=== PATIENT | male | born 1945 | race Caucasian/White ===

== ENCOUNTER 2020-10-16 15:35 | Outpatient (REF) | payer MEDICARE, OTHER, SELFPAY | END 2020-10-16 15:36 | disposition home or self-care (01) | LOC: HO.LAB 15:35 | PROVIDERS: Visit Provider Internal Medicine | DX: Z20.828 Contact with and (suspected) exposure to other viral communicable diseases (principal) | CPT/HCPCS: C9803; U0003 ==

== ENCOUNTER 2020-12-17 20:19 | Emergency (ER) | payer MEDICARE, OTHER, SELFPAY ==
--- NOTE | ~2020-12-17 | XR_ITS ---
EXAMINATION: XR CHEST CLINICAL INFORMATION: Chest pain COMPARISON: 10/16/2016 TECHNIQUE: 2 views of the chest were obtained. FINDINGS: No significant abnormality is noted involving the heart mediastinum, bony thorax or soft tissues. There is an opacity seen in the infrahilar region on the right consistent with a small area of infiltrate. Alternatively, this could represent some tortuosity of the fissure. No pleural effusions are seen. No pneumothorax is present. XR/XR chest 2V IMPRESSION: Small area of infiltrate right infrahilar region. In the correct clinical setting this could be pneumonia. A follow-up study is recommended after treatment.
[2020-12-17 20:30] VITALS: BP 139/73; PULSE 91; RESP 18; TEMP 36.8; O2SAT 94; BMI 26.5
--- NOTE | 2020-12-17 20:35 | ECG_ITS ---
Test Reason : HEARTBURN Blood Pressure : / mmHG Vent. Rate : 091 BPM Atrial Rate : 091 BPM P-R Int : 142 ms QRS Dur : 086 ms QT Int : 352 ms P-R-T Axes : 052 042 028 degrees QTc Int : 432 ms Normal sinus rhythm Nonspecific ST abnormality Abnormal ECG When compared with ECG of 16-OCT-2016 20:49, Nonspecific ST and T wave abnormality more prominent Referred By: Generic ED Physician Electronically Signed By:JESU FRANK
[2020-12-17 20:46] LABS: MANUAL DIFF FLAG NO
[2020-12-17 20:47] LABS: Basophils Percent Auto 0.3 % (0-2); Eosinophils Absolute Auto 0.3 X10*3/uL (0.0-0.4); Eosinophils Percent Auto 2.2 % (0-4); Hematocrit 35.5 % (42-52); Hemoglobin 11.9 g/dl (14.0-18.0); Imm Gran Abs Auto 0.22 X10*3/uL (0.00-0.03); Imm Gran Pct Auto 1.8 % (0.0-0.4); Lymphocytes Absolute Auto 1.8 X10*3/uL (1.2-4.9); Lymphocytes Percent Auto 14.3 % (20-40); Mean Corpuscular HGB Conc 33.5 g/dl (31.0-36.0); Mean Corpuscular Hemoglobin 30.8 pg (27.0-33.0); Mean Platelet Volume 8.5 fL (9.4-12.4); Monocytes Absolute Auto 0.7 X10*3/uL (0.1-1.2); Monocytes Percent Auto 5.7 % (2-11); Neutrophils Absolute Auto 9.3 X10*3/uL (2.0-8.3); Neutrophils Percent Auto 75.7 % (45-73); Platelet Count 387 X10*3/uL (160-400); Red Blood Count 3.86 X10*6/uL (4.60-5.80); Red Cell Distribution Width 12.9 % (11.0-16.0); White Blood Count 12.3 X10*3/uL (4.8-10.8)
[2020-12-17 21:07] LABS: Anion Gap 14 (12-20); Blood Urea Nitrogen 29 mg/dL (9-16); Carbon Dioxide 27 mmol/L (22-29); Chloride 100 mmol/L (96-108); Creatinine Clr Calc Pharmacy 65.8; Estimated Glomerular Filt Rate > 60; Glucose Random 175 mg/dL (60-115); Potassium 4.1 mmol/L (3.3-5.1); Sodium 137 mmol/L (135-145)
[2020-12-17 21:11] LABS: Troponin-I High Sensitivity < 3.5 ng/L (<3.5-35.0)
[2020-12-18] VITALS: BP 122/67; PULSE 63; RESP 16; O2SAT 96
--- NOTE | 2020-12-18 00:54 | ED.CHESTPAIN ---
HPI - Chest Pain General Chief Complaint: Chest Pain Stated Complaint: Chest pain Time Seen by Provider: 12/18/20 00:54 Source: patient Mode of arrival: ambulatory History of Present Illness HPI narrative: This is a 75-year-old male with significant past medical history for CAD, pancreatic mass status post pancreatectomy in mid November who presents for onset burning type chest pain, nonradiating and not associated with shortness of breath, nausea, dizziness, diaphoresis this started approximately 2:00 p.m. this afternoon. He took some Tums with some mild relief and then pain recurred approximately 5:00 p.m. at that time he spoke with his surgeon who recommended Mylanta and despite taking this patient states that he has continued to have the indigestion symptoms. Patient's denies any nausea or vomiting, has been having regular bowel movements and states that he continues to pass flatus. He denies any fevers or chills and his last COVID-19 testing was and was negative at that time. He has undergone his 1st COVID-19 vaccine on 11/18/2020 and is scheduled for his 2nd vaccine on 12/23. Related Data Previous Rx's Medication Instructions Recorded doxycycline hyclate 100 mg PO BID 7 Days #14 cap 12/18/20 Allergies Allergy/AdvReac Type Severity Reaction Status Date / Time meperidine [From Demerol] Allergy Unknown RASH Verified 12/17/20 20:30 Review of Systems Review of Systems: Pertinent positives and negatives as stated in HPI 10 point review of systems is otherwise negative. [facility] Past Medical History Source: nursing notes reviewed Medical History CAD (coronary artery disease) HTN (hypertension) Pancreatic abnormality Surgical History Hx of heart artery stent Social History Social History Alcohol intake: never Smoking Status: Former smoker Smoked in Last 30 Days: No Use of substances other than those prescribed or required for medical reasons: No Advance Directives: No Physical Exam Vital Signs: Vital Signs: Last Vital Signs Temp 98.2 F 12/17/20 20:30 Pulse 63 12/18/20 00:00 Resp 16 12/18/20 00:00 BP 122/67 12/18/20 00:00 Pulse Ox 96 12/18/20 00:00 Body Mass Index 26.5 VITAL SIGNS: Reviewed. GENERAL: Well developed, well nourished, in no acute distress. HEAD: Normocephalic/atraumatic, EYES: PERRLA, EOMI EARS: Ext canals without abnormality, TMs non-bulging and non-erythematous NOSE: Nares patent bilateral OROPHARYNX: no oral lesions noted, posterior pharynx clear NECK: Supple, no adenopathy LUNGS: Normal breath sounds. No adventitious sounds or accessory muscle use. SpO2<94> CARDIOVASCULAR: Regular rate and rhythm without noted murmurs, no JVD or lower extremity edema. ABDOMEN: Soft, non-tender, non-distended with bowel sounds. Well-healing scars consistent with patient's recent surgery. SKIN: Inspection of the skin reveals no rashes NEUROLOGIC: Alert and oriented x 4. Strength and sensation to light touch were grossly intact x 4. Course Course Course Narrative: This is a 75-year-old male with history and clinical presentation suggestive possible pneumonia, gastritis/GERD, less likely secondary to cardiac ischemia. Review of all investigations to include serial troponins are negative for any acute findings other than as chest x-ray findings consistent with pneumonia that correspond to a mild leukocytosis of 12.3. Patient will receive initial antibiotics here in the emergency department and be discharged on remaining course with strong recommendations to follow up with his primary care provider. MDM - Chest Pain Lab Data Result diagrams: 12/17/20 20:41 12/17/20 20:41 Labs: Lab Results 12/17/20 12/17/20 12/17/20 Range/Units 20:41 20:41 20:41 WBC 12.3 H (4.8-10.8) X10*3/uL RBC 3.86 L (4.60-5.80) X10*6/uL Hgb 11.9 L (14.0-18.0) g/dl Hct 35.5 L (42-52) % MCV 92.0 (80-98) fL MCH 30.8 (27.0-33.0) pg MCHC 33.5 (31.0-36.0) g/dl RDW 12.9 (11.0-16.0) % Plt Count 387 (160-400) X10*3/uL MPV 8.5 L (9.4-12.4) fL Immature Gran % (Auto) 1.8 H (0.0-0.4) % Neut % (Auto) 75.7 H (45-73) % Lymph % (Auto) 14.3 L (20-40) % [place] % (Auto) 5.7 (2-11) % Eos % (Auto) 2.2 (0-4) % Baso % (Auto) 0.3 (0-2) % Lymph # (Auto) 1.8 (1.2-4.9) X10*3/uL [place] # (Auto) 0.7 (0.1-1.2) X10*3/uL Eos # (Auto) 0.3 (0.0-0.4) X10*3/uL Baso # (Auto) 0.0 (0.0-0.2) X10*3/uL Abs Immat Gran (auto) 0.22 H (0.00-0.03) X10*3/uL Absolute Neuts (auto) 9.3 H (2.0-8.3) X10*3/uL Absolute Nucleated RBC 0.000 (0.0-0.012) X10*3/uL Nucleated RBC % (auto) 0.0 (0.0-0.2) /100WBC Hold Blue Top SEE NOTE Sodium 137 (135-145) mmol/L Potassium 4.1 (3.3-5.1) mmol/L Chloride 100 (96-108) mmol/L Carbon Dioxide 27 (22-29) mmol/L Anion Gap 14 (12-20) BUN 29 H (9-16) mg/dL Creatinine 0.97 (0.5-1.4) mg/dL Estim Creat Clear Calc 65.8 Estimated GFR > 60 Random Glucose 175 H (60-115) mg/dL Calcium 9.0 (8.4-10.2) mg/dL Troponin I High Sens (<3.5-35.0) ng/L 12/17/20 12/18/20 Range/Units 20:41 01:35 WBC (4.8-10.8) X10*3/uL RBC (4.60-5.80) X10*6/uL Hgb (14.0-18.0) g/dl Hct (42-52) % MCV (80-98) fL MCH (27.0-33.0) pg MCHC (31.0-36.0) g/dl RDW (11.0-16.0) % Plt Count (160-400) X10*3/uL MPV (9.4-12.4) fL Immature Gran % (Auto) (0.0-0.4) % Neut % (Auto) (45-73) % Lymph % (Auto) (20-40) % [place] % (Auto) (2-11) % Eos % (Auto) (0-4) % Baso % (Auto) (0-2) % Lymph # (Auto) (1.2-4.9) X10*3/uL [place] # (Auto) (0.1-1.2) X10*3/uL Eos # (Auto) (0.0-0.4) X10*3/uL Baso # (Auto) (0.0-0.2) X10*3/uL Abs Immat Gran (auto) (0.00-0.03) X10*3/uL Absolute Neuts (auto) (2.0-8.3) X10*3/uL Absolute Nucleated RBC (0.0-0.012) X10*3/uL Nucleated RBC % (auto) (0.0-0.2) /100WBC Hold Blue Top Sodium (135-145) mmol/L Potassium (3.3-5.1) mmol/L Chloride (96-108) mmol/L Carbon Dioxide (22-29) mmol/L Anion Gap (12-20) BUN (9-16) mg/dL Creatinine (0.5-1.4) mg/dL Estim Creat Clear Calc Estimated GFR Random Glucose (60-115) mg/dL Calcium (8.4-10.2) mg/dL Troponin I High Sens < 3.5 4.4 (<3.5-35.0) ng/L ECG Data ECG #1: Attestation: I personally reviewed and interpreted this ECG as follows: Prior ECG tracings: available for review (10/16/2016 no acute changes on comparison) Ischemic changes: non-specific ST-T wave changes Interpretation: Normal sinus rhythm, HR-91, no evidence of acute ischemia, DE/QRS/QTC is within normal limits. Discharge Plan Discharge Clinical Impression: Pneumonia Qualifiers: Pneumonia type: due to unspecified organism Laterality: right Lung location: unspecified part of lung Qualified Code(s): J18.9 - Pneumonia, unspecified organism Patient Disposition: Home, Self-Care Instructions: Pneumonia (ED) Additional Instructions: Resume all home medications as prescribed. Complete entire course of antibiotics. Please follow-up with your primary care provider by calling 1st thing in the morning to alert them of your diagnosis pneumonia. Do not hesitate to return to the emergency department should you develop any acute worsening of your symptoms that include increased shortness of breath, fevers, chills. Prescriptions: New doxycycline hyclate 100 mg capsule 100 mg PO BID 7 Days Qty: 14 RF: 0 Referrals: Farhan Salcido MD [Primary Care Provider] - 2 days (Re-evaluation after diagnosed with pneumonia on 12/18/2020 and started on a course of doxycycline.)
[2020-12-18 01:48] VITALS: PULSE 63
[2020-12-18 02:00] VITALS: BP 130/72; PULSE 68; RESP 16; O2SAT 96
[2020-12-18 02:12] LABS: Troponin-I High Sensitivity 4.4 ng/L (<3.5-35.0)
== END 2020-12-18 03:00 | disposition home or self-care (01) ==
PROVIDERS: Emergency Provider Student in an Organized Health Care Education/Training Program; PCP Internal Medicine
DX: J18.9 Pneumonia, unspecified organism (principal); R07.9 Chest pain, unspecified; I10 Essential (primary) hypertension; Z87.891 Personal history of nicotine dependence; I25.10 Atherosclerotic heart disease of native coronary artery without angina pectoris
CPT/HCPCS: 36415; 71046; 80048; 84484; 85025; 93005; 99283; 99284

== ENCOUNTER 2021-02-01 13:06 | Outpatient (REF) | payer MEDICARE, OTHER, SELFPAY ==
--- NOTE | ~2021-02-01 | XR_ITS ---
EXAMINATION: XR CHEST CLINICAL INFORMATION: Follow-up right-sided pneumonia COMPARISON: Previous chest x-ray 12/17/2020 TECHNIQUE: 2 views of the chest were obtained. FINDINGS: The cardiac and mediastinal contours are normal. The lungs are clear without evidence of a pneumonia. There is no pleural effusion or pneumothorax. There are mild degenerative changes of the spine. XR/XR chest 2V IMPRESSION: No evidence of pneumonia.
== END 2021-02-01 13:07 | disposition home or self-care (01) ==
LOC: HO.LAB 13:06
PROVIDERS: PCP Internal Medicine; Visit Provider Internal Medicine
DX: J18.8 Other pneumonia, unspecified organism (principal)
CPT/HCPCS: 71046

== ENCOUNTER 2023-02-16 11:52 | Emergency (ER) | payer MEDICARE, OTHER, SELFPAY ==
--- NOTE | ~2023-02-16 | XR_ITS ---
EXAMINATION: XR CHEST CLINICAL INFORMATION: Chest pain COMPARISON: Previous chest x-ray most recent January 2021 TECHNIQUE: 2 views of the chest were obtained. FINDINGS: No significant abnormality is noted involving the heart, lungs, mediastinum, bony thorax or soft tissues. There are degenerative changes of the spine. XR/XR chest 2V IMPRESSION: No evidence for acute disease in the chest.
--- NOTE | 2023-02-16 11:56 | ECG_ITS ---
Test Reason : CP Blood Pressure : / mmHG Vent. Rate : 130 BPM Atrial Rate : 130 BPM P-R Int : 136 ms QRS Dur : 148 ms QT Int : 336 ms P-R-T Axes : 000 029 -31 degrees QTc Int : 494 ms Atrial flutter with 2 to 1 block Right bundle branch block Possible Inferior infarct , age undetermined Abnormal ECG When compared with ECG of 17-DEC-2020 20:26, Atrial flutter with 2 to 1 block has replaced Normal sinus rhythm Right bundle branch block is now Present Referred By: Mirlande Bertrand Electronically Signed By:ALEJA GANDARA MD
--- NOTE | 2023-02-16 12:17 | ED_ITS ---
HPI - Chest Pain General Chief Complaint: Chest Pain <MONA Bernardo - Last Filed: 02/16/23 12:23> Stated Complaint: Chest pain <MONA Bernardo - Last Filed: 02/16/23 12:23> Time Seen by Provider: 02/16/23 12:27 <MONA Bernardo - Last Filed: 02/16/23 12:23> Source: patient <Arnulfo Whitman MD - Last Filed: 02/16/23 15:07> Mode of arrival: ambulatory <Arnulfo Whitman MD - Last Filed: 02/16/23 15:07> Limitations: no limitations <Arnulfo Whitman MD - Last Filed: 02/16/23 15:07> History of Present Illness HPI narrative: In 77-year-old male with history of coronary artery disease with 3 stents on Xarelto for paroxysmal atrial fibrillation presents with chest pain. The chest pain started at rest while watching TV. Was substernal. Did not radiate. Described as tight. Symptoms are moderate. It was not worsened by exertion. Patient normally able to walk 2 miles without any complaints. Said no fevers or chills. Denies any shortness of breath, palpitations, lightheadedness, nausea, vomiting. Patient is currently pain-free. Patient reports his pain as being different from his cardiac pain in the past when it felt like heartburn. <Arnulfo Whitman MD - Last Filed: 02/16/23 15:07> Related Data Home Medications: Previous Rx's Medication Instructions Recorded doxycycline hyclate 100 mg capsule 100 mg PO BID 7 days #14 caps 12/18/20 <MONA Bernardo - Last Filed: 02/16/23 12:23> Allergies/Adverse Reactions: Allergies Allergy/AdvReac Type Severity Reaction Status Date / Time meperidine [From Demerol] Allergy Unknown RASH Verified 02/16/23 12:18 metformin Allergy Muscle Pain Verified 02/16/23 12:18 <MONA Bernardo - Last Filed: 02/16/23 12:23> [facility] Past Medical History Medical History: Medical History CAD (coronary artery disease) HTN (hypertension) Pancreatic abnormality <MONA Bernardo - Last Filed: 02/16/23 12:23> Surgical History: Surgical History Hx of heart artery stent <MONA Bernardo - Last Filed: 02/16/23 12:23> Social History Social History: Social History Alcohol intake: current Alcohol intake frequency: 0-2 drinks per day Smoked in Last 30 Days: No Use of substances other than those prescribed or required for medical reasons: No Advance Directives: Yes Advance Directives Information Provided: Yes Advance Directives on File: No <MONA Bernardo - Last Filed: 02/16/23 12:23> Physical Exam Vital Signs: Vital Signs: Last Vital Signs Temp 97.9 F 02/16/23 13:24 Pulse 116 H 02/16/23 13:24 Resp 20 02/16/23 13:24 BP 157/111 H 02/16/23 13:24 Pulse Ox 94 02/16/23 13:24 O2 Del Method Room Air 02/16/23 13:24 BMI result Body Mass Index 27.9 <MONA Bernardo - Last Filed: 02/16/23 12:23> Vital Signs: Last Vital Signs Temp 97.9 F 02/16/23 13:24 Pulse 116 H 02/16/23 13:24 Resp 20 02/16/23 13:24 BP 157/111 H 02/16/23 13:24 Pulse Ox 94 02/16/23 13:24 O2 Del Method Room Air 02/16/23 13:24 BMI result Body Mass Index 27.9 <Arnulfo Whitman MD - Last Filed: 02/16/23 15:07> GEN: Well developed, no acute distress, alert, oriented HEENT: Normocephalic, atraumatic, normal external ears, nose appears normal, no oropharyngeal edema or exudates Eyes: Normal to appearance Neck: Supple, no lymphadenopathy Respiratory: Talks in complete sentences, no respiratory distress, clear to auscultation bilaterally Cardiovascular: Regular rate and rhythm, no murmurs rubs or gallops, tachycardic Abdomen: Soft, nontender, nondistended, no guarding, no rebound Back: No CVA tenderness Extremities: No clubbing cyanosis or edema Neurologic: No focal neurologic deficits, cranial nerves 2-12 intact, strength is 5/5 bilaterally Skin: No rash <Arnulfo Whitman MD - Last Filed: 02/16/23 15:07> Course Course Course Narrative: RME - 77 y/o with history of paroxysaml atrial fibrillation on Eliquis, CAD s/p 3 stents, s/p Watchman procedure 2 weeks ago (sees [facility] at [facility]), hx pancreatic mass s/p pancreatectomy, prostate cancer with hx rectal bleeding in October due to radiation who presents to the ER for evaluation non-radiating central chest pressure and tachycardia that started at 11am today while watching the news. His watch notified him of a HR 130 bpm for 10 minutes, no palpitations, SOB, diaphoresis. Chest pressure self-resolved. HR 130s in triage. EKG sinus tachycardia, new RBBB compared to 2020. BP 170/100. Plan: EKG, labs, CXR. to go back to treatment room [facility] <MONA Bernardo - Last Filed: 02/16/23 12:23> Reevaluation(s) Reevaluation #1: remains tachycardic, giving ivf <Arnulfo Whitman MD - Last Filed: 02/16/23 15:07> Time: 13:28 <Arnulfo Whitman MD - Last Filed: 02/16/23 15:07> Reevaluation #2: Metoprolol given, no change in HR, will try Cardizem <Arnulfo Whitman MD - Last Filed: 02/16/23 15:07> Time: 14:12 <Arnulfo Whitman MD - Last Filed: 02/16/23 15:07> Reevaluation #3: HR now 57. PVCs checking 12 lead. EKG demonstrated normal sinus rhythm. I suspect the initial EKG was actually atrial flutter with rapid ventricular response with a 2-1 block. I did send this to 1 of our cardiologists for review. He agreed with this interpretation. Two cardiac enzymes are now negati ve. Patient can be discharged to follow-up with his primary domestic housekeeper. <Arnulfo Whitman MD - Last Filed: 02/16/23 15:07> Time: 15:05 <Arnulfo Whitman MD - Last Filed: 02/16/23 15:07> Medications Administered Discontinued Medications Generic Name Dose Route Start Last Admin Trade Name Freq PRN Reason Stop Dose Admin Sodium Chloride 1,000 mls @ 999 mls/hr 02/16/23 12:45 02/16/23 14:51 Ns IV 02/16/23 13:45 Infused .Q1H1M LESLEE Infusion <MONA Bernardo - Last Filed: 02/16/23 12:23> Medications Administered Discontinued Medications Generic Name Dose Route Start Last Admin Trade Name Freq PRN Reason Stop Dose Admin Sodium Chloride 1,000 mls @ 999 mls/hr 02/16/23 12:45 02/16/23 14:51 Ns IV 02/16/23 13:45 Infused .Q1H1M LESLEE Infusion <Arnulfo Whitman MD - Last Filed: 02/16/23 15:07> Medical Decision Making Medical Decision Making [facility] Narrative: 77-year-old male presents with chest pain. Patient has history coronary artery disease. On arrival, is hemodynamically stable, no acute distress, pain free. Cardiopulmonary exam revealed tachycardia but otherwise no acute abnormalities. EKG shows sinus tachycardia with a right bundle-branch block. That was not seen previously. It patient is currently pain-free. Patient will need 2 sets of cardiac enzymes, chest x-ray, re-evaluation. <Arnulfo Whitman MD - Last Filed: 02/16/23 15:07> Differential Diagnosis Differential Diagnoses: The differential diagnosis associated with the presentation includes (Acute coronary syndrome, chest pain, atypical chest pain, GERD, gastritis, dyspepsia) <Arnulfo Whitman MD - Last Filed: 02/16/23 15:07> Atrial flutter with rapid ventricular response, chest pain <Arnulfo Whitman MD - Last Filed: 02/16/23 15:07> Admission/Observation Consideration of admission/observation: Escalation of care including admission/observation considered <Arnulfo Whitman MD - Last Filed: 02/16/23 15:07> Lab Data [facility] Lab Attestation statement: I reviewed the patient's lab results. <Arnulfo Whitman MD - Last Filed: 02/16/23 15:07> Result Diagrams: 02/16/23 12:11 02/16/23 12:11 <MONA Bernardo - Last Filed: 02/16/23 12:23> Labs: Lab Results 02/16/23 02/16/23 02/16/23 Range/Units 12:11 12:11 12:11 WBC 5.9 (4.8-10.8) X10*3/uL RBC 4.98 (4.60-5.80) X10*6/uL Hgb 14.6 (14.0-18.0) g/dl Hct 44.5 (42.0-52.0) % MCV 89.4 (80.0-98.0) fL MCH 29.3 (27.0-33.0) pg MCHC 32.8 (31.0-36.0) g/dl RDW 14.6 (11.0-16.0) % Plt Count 149 L (160-400) X10*3/uL MPV 9.4 (9.4-12.4) fL Immature Gran % (Auto) 0.7 H (0.0-0.4) % Neut % (Auto) 56.4 (45-73) % Lymph % (Auto) 26.7 (20-40) % [place] % (Auto) 8.3 (2-11) % Eos % (Auto) 7.2 H (0-4) % Baso % (Auto) 0.7 (0-2) % Lymph # (Auto) 1.6 (1.2-4.9) X10*3/uL [place] # (Auto) 0.5 (0.1-1.2) X10*3/uL Eos # (Auto) 0.4 (0.0-0.4) X10*3/uL Baso # (Auto) 0.0 (0.0-0.2) X10*3/uL Abs Immat Gran (auto) 0.04 H (0.00-0.03) X10*3/uL Absolute Neuts (auto) 3.3 (2.0-8.3) x10*3/uL Absolute Nucleated RBC 0.000 (0.0-0.012) X10*3/uL Nucleated RBC % (auto) 0.0 (0.0-0.2) /100WBC Sodium 140 (135-145) mmol/L Potassium 4.7 (3.3-5.1) mmol/L Chloride 105 (96-108) mmol/L Carbon Dioxide 27 (22-29) mmol/L Anion Gap 13 (12-20) BUN 22 H (9-16) mg/dL Creatinine 0.97 (0.5-1.4) mg/dL Estim Creat Clear Calc 69.1 Estimated GFR > 60 Random Glucose 127 H (60-115) mg/dL Calcium 9.9 D (8.4-10.2) mg/dL Magnesium 2.1 (1.6-2.6) mg/dL Total Bilirubin 1.0 (0.0-1.0) mg/dL Direct Bilirubin 0.3 (0.0-0.5) mg/dL AST 22 (5-37) U/L ALT 18 (0-40) U/L Alkaline Phosphatase 83 (39-117) U/L Troponin I High Sens < 2.7 (<3.5-35.0) ng/L B-Natriuretic Peptide (<100) pg/mL Total Protein 7.0 (6.5-8.0) g/dL Albumin 4.2 (3.5-5.0) g/dL TSH 1.61 (0.32-4.0) uIU/mL 02/16/23 02/16/23 Range/Units 12:11 14:33 WBC (4.8-10.8) X10*3/uL RBC (4.60-5.80) X10*6/uL Hgb (14.0-18.0) g/dl Hct (42.0-52.0) % MCV (80.0-98.0) fL MCH (27.0-33.0) pg MCHC (31.0-36.0) g/dl RDW (11.0-16.0) % Plt Count (160-400) X10*3/uL MPV (9.4-12.4) fL Immature Gran % (Auto) (0.0-0.4) % Neut % (Auto) (45-73) % Lymph % (Auto) (20-40) % [place] % (Auto) (2-11) % Eos % (Auto) (0-4) % Baso % (Auto) (0-2) % Lymph # (Auto) (1.2-4.9) X10*3/uL [place] # (Auto) (0.1-1.2) X10*3/uL Eos # (Auto) (0.0-0.4) X10*3/uL Baso # (Auto) (0.0-0.2) X10*3/uL Abs Immat Gran (auto) (0.00-0.03) X10*3/uL Absolute Neuts (auto) (2.0-8.3) x10*3/uL Absolute Nucleated RBC (0.0-0.012) X10*3/uL Nucleated RBC % (auto) (0.0-0.2) /100WBC Sodium (135-145) mmol/L Potassium (3.3-5.1) mmol/L Chloride (96-108) mmol/L Carbon Dioxide (22-29) mmol/L Anion Gap (12-20) BUN (9-16) mg/dL Creatinine (0.5-1.4) mg/dL Estim Creat Clear Calc Estimated GFR Random Glucose (60-115) mg/dL Calcium (8.4-10.2) mg/dL Magnesium (1.6-2.6) mg/dL Total Bilirubin (0.0-1.0) mg/dL Direct Bilirubin (0.0-0.5) mg/dL AST (5-37) U/L ALT (0-40) U/L Alkaline Phosphatase (39-117) U/L Troponin I High Sens < 2.7 (<3.5-35.0) ng/L B-Natriuretic Peptide 140 H (<100) pg/mL Total Protein (6.5-8.0) g/dL Albumin (3.5-5.0) g/dL TSH (0.32-4.0) uIU/mL <MONA Bernardo - Last Filed: 02/16/23 12:23> Lab Results 02/16/23 02/16/23 02/16/23 Range/Units 12:11 12:11 12:11 WBC 5.9 (4.8-10.8) X10*3/uL RBC 4.98 (4.60-5.80) X10*6/uL Hgb 14.6 (14.0-18.0) g/dl Hct 44.5 (42.0-52.0) % MCV 89.4 (80.0-98.0) fL MCH 29.3 (27.0-33.0) pg MCHC 32.8 (31.0-36.0) g/dl RDW 14.6 (11.0-16.0) % Plt Count 149 L (160-400) X10*3/uL MPV 9.4 (9.4-12.4) fL Immature Gran % (Auto) 0.7 H (0.0-0.4) % Neut % (Auto) 56.4 (45-73) % Lymph % (Auto) 26.7 (20-40) % [place] % (Auto) 8.3 (2-11) % Eos % (Auto) 7.2 H (0-4) % Baso % (Auto) 0.7 (0-2) % Lymph # (Auto) 1.6 (1.2-4.9) X10*3/uL [place] # (Auto) 0.5 (0.1-1.2) X10*3/uL Eos # (Auto) 0.4 (0.0-0.4) X10*3/uL Baso # (Auto) 0.0 (0.0-0.2) X10*3/uL Abs Immat Gran (auto) 0.04 H (0.00-0.03) X10*3/uL Absolute Neuts (auto) 3.3 (2.0-8.3) x10*3/uL Absolute Nucleated RBC 0.000 (0.0-0.012) X10*3/uL Nucleated RBC % (auto) 0.0 (0.0-0.2) /100WBC Sodium 140 (135-145) mmol/L Potassium 4.7 (3.3-5.1) mmol/L Chloride 105 (96-108) mmol/L Carbon Dioxide 27 (22-29) mmol/L Anion Gap 13 (12-20) BUN 22 H (9-16) mg/dL Creatinine 0.97 (0.5-1.4) mg/dL Estim Creat Clear Calc 69.1 Estimated GFR > 60 Random Glucose 127 H (60-115) mg/dL Calcium 9.9 D (8.4-10.2) mg/dL Magnesium 2.1 (1.6-2.6) mg/dL Total Bilirubin 1.0 (0.0-1.0) mg/dL Direct Bilirubin 0.3 (0.0-0.5) mg/dL AST 22 (5-37) U/L ALT 18 (0-40) U/L Alkaline Phosphatase 83 (39-117) U/L Troponin I High Sens < 2.7 (<3.5-35.0) ng/L B-Natriuretic Peptide (<100) pg/mL Total Protein 7.0 (6.5-8.0) g/dL Albumin 4.2 (3.5-5.0) g/dL TSH 1.61 (0.32-4.0) uIU/mL 02/16/23 02/16/23 Range/Units 12:11 14:33 WBC (4.8-10.8) X10*3/uL RBC (4.60-5.80) X10*6/uL Hgb (14.0-18.0) g/dl Hct (42.0-52.0) % MCV (80.0-98.0) fL MCH (27.0-33.0) pg MCHC (31.0-36.0) g/dl RDW (11.0-16.0) % Plt Count (160-400) X10*3/uL MPV (9.4-12.4) fL Immature Gran % (Auto) (0.0-0.4) % Neut % (Auto) (45-73) % Lymph % (Auto) (20-40) % [place] % (Auto) (2-11) % Eos % (Auto) (0-4) % Baso % (Auto) (0-2) % Lymph # (Auto) (1.2-4.9) X10*3/uL [place] # (Auto) (0.1-1.2) X10*3/uL Eos # (Auto) (0.0-0.4) X10*3/uL Baso # (Auto) (0.0-0.2) X10*3/uL Abs Immat Gran (auto) (0.00-0.03) X10*3/uL Absolute Neuts (auto) (2.0-8.3) x10*3/uL Absolute Nucleated RBC (0.0-0.012) X10*3/uL Nucleated RBC % (auto) (0.0-0.2) /100WBC Sodium (135-145) mmol/L Potassium (3.3-5.1) mmol/L Chloride (96-108) mmol/L Carbon Dioxide (22-29) mmol/L Anion Gap (12-20) BUN (9-16) mg/dL Creatinine (0.5-1.4) mg/dL Estim Creat Clear Calc Estimated GFR Random Glucose (60-115) mg/dL Calcium (8.4-10.2) mg/dL Magnesium (1.6-2.6) mg/dL Total Bilirubin (0.0-1.0) mg/dL Direct Bilirubin (0.0-0.5) mg/dL AST (5-37) U/L ALT (0-40) U/L Alkaline Phosphatase (39-117) U/L Troponin I High Sens < 2.7 (<3.5-35.0) ng/L B-Natriuretic Peptide 140 H (<100) pg/mL Total Protein (6.5-8.0) g/dL Albumin (3.5-5.0) g/dL TSH (0.32-4.0) uIU/mL <Arnulfo Whitman MD - Last Filed: 02/16/23 15:07> Independent Interpretation I performed an independent interpretation of an: EKG (Sinus tachycardia heart rate 130, right bundle-branch block, rate related ST T-wave changes, new changes noted since previous EKG) <Arnulfo Whitman MD - Last Filed: 02/16/23 15:07> Interpretation: Repeat EKG shows sinus bradycardia heart rate 56, interval improvement in the right bundle-branch block, no acute ST elevations or depressions. Suspect changes were otherwise for rate related issues. Patient will need to follow up with his primary domestic housekeeper assuming his 2nd troponin is negative. <Arnulfo Whitman MD - Last Filed: 02/16/23 15:07> Prescription Management I considered prescription management with: Pain Medication <Arnulfo Whitman MD - Last Filed: 02/16/23 15:07> Chronic Conditions Patient?s care impacted by: Other (CAD) <Arnulfo Whitman MD - Last Filed: 02/16/23 15:07> Discharge Plan Discharge Clinical Impression: Chest pain, Atrial flutter <MONA Bernardo - Last Filed: 02/16/23 12:23> Patient Disposition: Home, Self-Care <MONA Bernardo - Last Filed: 02/16/23 12:23> Instructions: Atrial Flutter (ED), Chest Pain (ED) <MONA Bernardo - Last Filed: 02/16/23 12:23> Prescriptions: No Action doxycycline hyclate 100 mg capsule 100 mg PO BID 7 Days Qty: 14 0RF <MONA Bernardo - Last Filed: 02/16/23 12:23> Referrals: Farhan Salcido MD [Primary Care Provider] - (Or your primary domestic housekeeper later this week) <MONA Bernardo - Last Filed: 02/16/23 12:23>
[2023-02-16 12:18] VITALS: BP 173/105; PULSE 133; RESP 19; TEMP 36.6; O2SAT 98; BMI 27.9
[2023-02-16 12:20] LABS: MANUAL DIFF FLAG NO
[2023-02-16 12:22] LABS: Basophils Percent Auto 0.7 % (0-2); Eosinophils Absolute Auto 0.4 X10*3/uL (0.0-0.4); Eosinophils Percent Auto 7.2 % (0-4); Hematocrit 44.5 % (42.0-52.0); Hemoglobin 14.6 g/dl (14.0-18.0); Imm Gran Abs Auto 0.04 X10*3/uL (0.00-0.03); Imm Gran Pct Auto 0.7 % (0.0-0.4); Lymphocytes Absolute Auto 1.6 X10*3/uL (1.2-4.9); Lymphocytes Percent Auto 26.7 % (20-40); Mean Corpuscular HGB Conc 32.8 g/dl (31.0-36.0); Mean Corpuscular Hemoglobin 29.3 pg (27.0-33.0); Mean Corpuscular Volume 89.4 fL (80.0-98.0); Mean Platelet Volume 9.4 fL (9.4-12.4); Monocytes Absolute Auto 0.5 X10*3/uL (0.1-1.2); Monocytes Percent Auto 8.3 % (2-11); Neutrophils Absolute Auto 3.3 x10*3/uL (2.0-8.3); Neutrophils Percent Auto 56.4 % (45-73); Platelet Count 149 X10*3/uL (160-400); Red Blood Count 4.98 X10*6/uL (4.60-5.80); Red Cell Distribution Width 14.6 % (11.0-16.0); White Blood Count 5.9 X10*3/uL (4.8-10.8)
[2023-02-16 12:50] LABS: B Type Natriuretic Peptide 140 pg/mL (<100)
[2023-02-16 12:54] LABS: Alanine Aminotransferase 18 U/L (0-40); Albumin Level 4.2 g/dL (3.5-5.0); Alkaline Phosphatase 83 U/L (39-117); Anion Gap 13 (12-20); Aspartate Amino Transferase 22 U/L (5-37); Bilirubin Direct 0.3 mg/dL (0.0-0.5); Blood Urea Nitrogen 22 mg/dL (9-16); Calcium 9.9 mg/dL (8.4-10.2); Carbon Dioxide 27 mmol/L (22-29); Chloride 105 mmol/L (96-108); Creatinine Clr Calc Pharmacy 69.1; Estimated Glomerular Filt Rate > 60; Glucose Random 127 mg/dL (60-115); Magnesium 2.1 mg/dL (1.6-2.6); Potassium 4.7 mmol/L (3.3-5.1); Sodium 140 mmol/L (135-145)
[2023-02-16 12:55] LABS: Troponin-I High Sensitivity < 2.7 ng/L (<3.5-35.0)
[2023-02-16 13:10] LABS: TSH reflex Free T4 1.61 uIU/mL (0.32-4.0)
[2023-02-16] MEDS: 0.9 % Sodium Chloride 1,000 ML 999 ML IV (13:20)
[2023-02-16 13:24] VITALS: BP 157/111; PULSE 116; RESP 20; TEMP 36.6; O2SAT 94
--- NOTE | 2023-02-16 13:27 | PC.NURSE ---
pt alert/oriented. reporting mild mid chest pain that felt like tightness this morning. pain has subsided. IV inserted by MD. fluids running. Afib on monitor.
--- NOTE | 2023-02-16 14:30 | ECG_ITS ---
Test Reason : chest pain Blood Pressure : / mmHG Vent. Rate : 056 BPM Atrial Rate : 056 BPM P-R Int : 158 ms QRS Dur : 092 ms QT Int : 444 ms P-R-T Axes : 048 027 018 degrees QTc Int : 428 ms Sinus bradycardia Otherwise normal ECG When compared with ECG of 16-FEB-2023 12:02, Vent. rate has decreased BY 74 BPM Right bundle branch block is no longer Present Normal sinus rhythm has replaced Atrial flutter with 2 to 1 block Referred By: Arnulfo Whitman Electronically Signed By:ALEJA GANDARA MD
[2023-02-16 15:02] LABS: Troponin-I High Sensitivity < 2.7 ng/L (<3.5-35.0)
== END 2023-02-16 15:30 | disposition home or self-care (01) ==
PROVIDERS: Physician Assistant; Emergency Provider Emergency Medicine; PCP Internal Medicine
DX: I48.92 Unspecified atrial flutter (principal); R00.1 Bradycardia, unspecified; R07.89 Other chest pain; R06.02 Shortness of breath; I25.10 Atherosclerotic heart disease of native coronary artery without angina pectoris; Z79.01 Long term (current) use of anticoagulants; Z79.899 Other long term (current) drug therapy
CPT/HCPCS: 36415; 71046; 80048; 80076; 83735; 83880; 84443; 84484; 85025; 93005; 99284

== ENCOUNTER 2023-03-05 20:36 | Observation (INO) | payer MEDICARE, OTHER, SELFPAY ==
[2023-03-05] VITALS (7 sets, daily range): BP systolic 90–154; BP diastolic 54–88; PULSE 99–142; RESP 14–20; TEMP 36.6–36.7; O2SAT 94–99; BMI 28.0
--- NOTE | 2023-03-05 | ECG_ITS ---
Test Reason : RYTHIM CHANGES Blood Pressure : / mmHG Vent. Rate : 056 BPM Atrial Rate : 000 BPM P-R Int : 000 ms QRS Dur : 102 ms QT Int : 436 ms P-R-T Axes : 000 051 022 degrees QTc Int : 420 ms Atrial fibrillation with slow ventricular response Abnormal ECG When compared with ECG of 05-MAR-2023 20:43, Atrial fibrillation has replaced atrial flutter Vent. rate has decreased BY 84 BPM Right bundle branch block is no longer Present Referred By: Kamla Barillas Electronically Signed By:Jerry Daugherty
--- NOTE | ~2023-03-05 | XR_ITS ---
EXAMINATION: XR CHEST CLINICAL INFORMATION: Chest pain COMPARISON: None available. TECHNIQUE: Frontal view of the chest was obtained. FINDINGS: No significant abnormality is noted involving the heart, lungs, mediastinum, bony thorax or soft tissues. XR/XR chest 1V IMPRESSION: Unremarkable chest examination
[2023-03-05 21:14] LABS: Basophils Absolute Auto 0.1 X10*3/uL (0.0-0.2); Basophils Percent Auto 0.8 % (0-2); Eosinophils Absolute Auto 0.5 X10*3/uL (0.0-0.4); Eosinophils Percent Auto 6.1 % (0-4); Hematocrit 43.2 % (42.0-52.0); Hemoglobin 14.7 g/dl (14.0-18.0); Imm Gran Abs Auto 0.02 X10*3/uL (0.00-0.03); Imm Gran Pct Auto 0.2 % (0.0-0.4); Lymphocytes Absolute Auto 1.5 X10*3/uL (1.2-4.9); Lymphocytes Percent Auto 17.4 % (20-40); MANUAL DIFF FLAG NO; Mean Corpuscular Volume 88.2 fL (80.0-98.0); Mean Platelet Volume 9.5 fL (9.4-12.4); Monocytes Absolute Auto 0.6 X10*3/uL (0.1-1.2); Monocytes Percent Auto 6.6 % (2-11); Neutrophils Percent Auto 68.9 % (45-73); Platelet Count 209 X10*3/uL (160-400); Red Cell Distribution Width 14.4 % (11.0-16.0); White Blood Count 8.7 X10*3/uL (4.8-10.8)
--- NOTE | 2023-03-05 21:19 | ED.CHESTPAIN ---
HPI - Chest Pain General Chief Complaint: Chest Pain Stated Complaint: Chest pain Time Seen by Provider: 03/05/23 21:08 History of Present Illness HPI narrative: Patient a 77-year-old male presents today with palpitation and chest tightness this symptom has been ongoing since approximately 16:00. Has a history of atrial flutter. Had a Watchman procedure done 3 weeks ago. Presented today for palpitation and chest tightness. Patient denies any fever chills. There is no exertion. No nausea no vomiting. There is no leg swelling. No history of congestive heart failure. Patient's baseline is on Eliquis. Been compliant with his medication. History of being on metoprolol 75 mg twice a day. Again extra dose of metoprolol 25 mg prior to arrival. Patient denies any other changes in medication. Is from home. Related Data Home Medications Medication Instructions Recorded Confirmed amlodipine 5 mg tablet 5 mg PO DAILY 03/06/23 03/06/23 apixaban 5 mg tablet (Eliquis) 5 mg PO BID 03/06/23 03/06/23 gabapentin 300 mg capsule 300 mg PO BEDTIME PRN insomnia 03/06/23 03/06/23 losartan 100 mg tablet 100 mg PO DAILY 03/06/23 03/06/23 metoprolol tartrate 50 mg tablet 75 mg PO BID 03/06/23 03/06/23 rosuvastatin 10 mg tablet 10 mg PO DAILY 03/06/23 03/06/23 Allergies Allergy/AdvReac Type Severity Reaction Status Date / Time meperidine [From Demerol] Allergy Unknown RASH Verified 03/05/23 20:40 metformin Allergy Muscle Pain Verified 03/05/23 20:40 Review of Systems Review of Systems: Positive chest pain Positive palpitation PMFSH Past Medical History Attestation statement: The following information was validated with the patient. Medical History CAD (coronary artery disease) HTN (hypertension) Pancreatic abnormality Surgical History Hx of heart artery stent Social History Social History Alcohol intake: current Alcohol intake frequency: 0-2 drinks per day Alcohol type: beer, wine and hard liquor Patient Tobacco Use Status: Former Tobacco user Physical Exam Vital Signs: Vital Signs: Last Vital Signs Temp 98.0 F 03/05/23 22:12 Pulse 65 03/06/23 01:13 Resp 15 03/06/23 01:13 BP 106/66 03/06/23 01:13 Pulse Ox 95 03/06/23 01:13 O2 Del Method Room Air 03/06/23 01:13 BMI result Body Mass Index 28.0 Appearance: Alert. Oriented X3. No acute distress. Eyes: Pupils equal, round and reactive to light. ENT: Pharynx normal. Neck: Normal inspection. Neck supple. No lymph nodes noted. No crepitus CVS: Tachycardic Respiratory: No respiratory distress. Breath sounds normal. No Wheezing. No rales Abdomen: Soft and nontender. No rigidity. No distention. good BS x4 Skin: Skin warm and dry. Normal skin color. Normal skin turgor. Extremities: No lower extremity edema. Neurovascular intact to all extremities. No Lacerations. No Rash Neuro: Oriented X 3. No motor deficit. No sensory deficit. Moving all extermities. No slurred speech Medications Administered Generic Name Dose Route Start Last Admin Trade Name Freq PRN Reason Stop Dose Admin Diltiazem HCl 125 mg/ Sodium 125 mls @ 0 mls/hr 03/05/23 23:00 03/06/23 01:14 Chloride IVCONT 10 mg/hr .Q0M LESLEE 10 mls/hr Titration Protocol Per Protocol Discontinued Medications Generic Name Dose Route Start Last Admin Trade Name Freq PRN Reason Stop Dose Admin Diltiazem HCl 20 mg 03/05/23 21:18 03/05/23 21:22 Diltiazem Hcl 50 Mg/10 Ml Vial IVPUSH 03/05/23 21:19 20 mg STAT STA Administration Diltiazem HCl 10 mg 03/05/23 21:45 03/05/23 22:15 Diltiazem Hcl 50 Mg/10 Ml Vial IVPUSH 03/05/23 21:46 10 mg STAT STA Administration Sodium Chloride 250 mls @ 999 mls/hr 03/05/23 22:00 03/05/23 22:11 Ns IV 03/05/23 22:15 Infused .Q16M LESLEE Infusion Sodium Chloride 500 mls @ 999 mls/hr 03/05/23 22:45 03/05/23 23:08 Ns IV 03/05/23 23:15 Infused .Q31M LESLEE Infusion Sodium Chloride 500 mls @ 999 mls/hr 03/05/23 22:45 03/05/23 23:08 Ns IV 03/05/23 23:15 Infused .Q31M LESLEE Infusion Metoprolol Tartrate 5 mg 03/06/23 00:52 03/06/23 01:15 Metoprolol Tartrate 5 Mg/5 Ml Vial IVPUSH 03/06/23 00:53 Not Given ONCE ONE Medical Decision Making Medical Decision Making [facility] Narrative: Patient presents today with a heart rate of approximately 140-150. In in atrial flutter pattern despite having a Watchman procedure 2 weeks ago. Patient given Cardizem initially 25 mg followed by an additional 10 mg still heart rate was 140-150 appears to be in atrial flutter pattern. Went ahead and gave patient a Cardizem drip. Started a drip at 10 milligrams/hour. Monitor for proximally 3-4 hours the trip was pumped up to approximately 15 milligrams/hour. Patient heart rate at approximately 1 a.m. drop down to 70. Still in atrial fibrillation but much improved. Patient's case discussed with the hospitalist team. Will require admission further evaluation patient's initial troponin was negative. He is already anticoagulated on Eliquis. Being admitted for further evaluation Differential Diagnosis ACS, atrial flutter/atrial fibrillation Consult Healthcare Provider Management of the patient was discussed with: Hospitalist Lab Data [facility] Lab Attestation statement: I reviewed the patient's lab results. 03/05/23 21:10 03/05/23 20:55 Labs: Lab Results 03/05/23 03/05/23 03/05/23 Range/Units 20:55 20:55 21:10 WBC 8.7 (4.8-10.8) X10*3/uL RBC 4.90 (4.60-5.80) X10*6/uL Hgb 14.7 (14.0-18.0) g/dl Hct 43.2 (42.0-52.0) % MCV 88.2 (80.0-98.0) fL MCH 30.0 (27.0-33.0) pg MCHC 34.0 (31.0-36.0) g/dl RDW 14.4 (11.0-16.0) % Plt Count 209 D (160-400) X10*3/uL MPV 9.5 (9.4-12.4) fL Immature Gran % (Auto) 0.2 (0.0-0.4) % Neut % (Auto) 68.9 (45-73) % Lymph % (Auto) 17.4 L (20-40) % [place] % (Auto) 6.6 (2-11) % Eos % (Auto) 6.1 H (0-4) % Baso % (Auto) 0.8 (0-2) % Lymph # (Auto) 1.5 (1.2-4.9) X10*3/uL [place] # (Auto) 0.6 (0.1-1.2) X10*3/uL Eos # (Auto) 0.5 H (0.0-0.4) X10*3/uL Baso # (Auto) 0.1 (0.0-0.2) X10*3/uL Abs Immat Gran (auto) 0.02 (0.00-0.03) X10*3/uL Absolute Neuts (auto) 6.0 (2.0-8.3) x10*3/uL Absolute Nucleated RBC 0.000 (0.0-0.012) X10*3/uL Nucleated RBC % (auto) 0.0 (0.0-0.2) /100WBC Sodium 141 (135-145) mmol/L Potassium 4.6 (3.3-5.1) mmol/L Chloride 103 (96-108) mmol/L Carbon Dioxide 28 (22-29) mmol/L Anion Gap 15 (12-20) BUN 24 H (9-16) mg/dL Creatinine 1.31 (0.5-1.4) mg/dL Estim Creat Clear Calc 51.2 Estimated GFR 53 Random Glucose 249 H (60-115) mg/dL Calcium 9.5 (8.4-10.2) mg/dL Total Bilirubin 0.8 (0.0-1.0) mg/dL Direct Bilirubin 0.2 (0.0-0.5) mg/dL AST 18 (5-37) U/L ALT 14 (0-40) U/L Alkaline Phosphatase 83 (39-117) U/L Troponin I High Sens 4.3 D (<3.5-35.0) ng/L Total Protein 6.7 (6.5-8.0) g/dL Albumin 4.1 (3.5-5.0) g/dL Independent Interpretation I performed an independent interpretation of an: EKG Interpretation: My interpretation patient's EKG shows a atrial flutter rate of approximately 140 Radiology Impression Discussion of test interpretation with radiology: I have reviewed the radiologist's reading. Independent Historian Clinical information obtained from an independent historian. History obtained from or confirmed by: Spouse External Record Review External record reviewed: Inpatient record Chronic Conditions Patient?s care impacted by: Hypertension Atrial fibrillation Critical Care Time Critical Care Time Critical Care Time: Yes Total Critical Care Time: 60 Attestation: I have personally provided 60 minutes of critical care time exclusive of time spent on separately billable procedures. Time includes review of lab data, radiology results, discussion with consultants, and monitoring for potential decompensation. Interventions were performed as documented above Discharge Plan Discharge Clinical Impression: Atrial fibrillation Patient Disposition: Admitted As Inpatient Prescriptions: No Action amlodipine 5 mg tablet 5 mg PO DAILY metoprolol tartrate 50 mg tablet 75 mg PO BID gabapentin 300 mg capsule 300 mg PO BEDTIME PRN (Reason: insomnia) losartan 100 mg tablet 100 mg PO DAILY rosuvastatin 10 mg tablet 10 mg PO DAILY Eliquis 5 mg tablet 5 mg PO BID
[2023-03-05] MEDS: dilTIAZem HCL 50 MG/10 ML VIAL 20 MG IVPUSH (21:22)
[2023-03-05 21:23] LABS: Troponin-I High Sensitivity 4.3 ng/L (<3.5-35.0)
[2023-03-05 21:29] LABS: Alanine Aminotransferase 14 U/L (0-40); Albumin Level 4.1 g/dL (3.5-5.0); Alkaline Phosphatase 83 U/L (39-117); Anion Gap 15 (12-20); Aspartate Amino Transferase 18 U/L (5-37); Bilirubin Direct 0.2 mg/dL (0.0-0.5); Bilirubin Total 0.8 mg/dL (0.0-1.0); Blood Urea Nitrogen 24 mg/dL (9-16); Calcium 9.5 mg/dL (8.4-10.2); Carbon Dioxide 28 mmol/L (22-29); Chloride 103 mmol/L (96-108); Creatinine Clr Calc Pharmacy 51.2; Estimated Glomerular Filt Rate 53; Glucose Random 249 mg/dL (60-115); Potassium 4.6 mmol/L (3.3-5.1); Sodium 141 mmol/L (135-145); Total Protein 6.7 g/dL (6.5-8.0)
[2023-03-05] MEDS: 0.9 % Sodium Chloride 250 ML 999 ML IV (21:53)
--- NOTE | 2023-03-05 21:54 | PC.NURSE ---
blood pressure down to 90/60s, MD aware, verbal order to hold diltiazem until blood pressure improves. verbal order for 250ml bolus of normal saline. Pt also placed into trendelenburg
[2023-03-05] MEDS: dilTIAZem HCL 50 MG/10 ML VIAL 10 MG IVPUSH (22:15)
[2023-03-05] MEDS: 0.9 % Sodium Chloride 500 ML 999 ML IV ×2 (22:37)
[2023-03-05] MEDS: dilTIAZem HCL 125 MG in 0.9 % Sodium Chloride 100 ML 10 MG IVCONT (23:21)
--- NOTE | 2023-03-05 23:44 | PC.NURSE ---
HR 131. Dilt increased to 15mg/hr. aware.
--- NOTE | 2023-03-06 | ECG_ITS ---
Test Reason : RYTHIM CHANGES Blood Pressure : / mmHG Vent. Rate : 055 BPM Atrial Rate : 000 BPM P-R Int : 000 ms QRS Dur : 098 ms QT Int : 436 ms P-R-T Axes : 000 053 023 degrees QTc Int : 417 ms Atrial fibrillation with slow ventricular response Abnormal ECG When compared with ECG of 06-MAR-2023 02:11, No significant change was found Referred By: Kamla Barillas Electronically Signed By:Jerry Daugherty
--- NOTE | 2023-03-06 | ECG_ITS ---
Test Reason : change in rhythm Blood Pressure : / mmHG Vent. Rate : 140 BPM Atrial Rate : 140 BPM P-R Int : 120 ms QRS Dur : 148 ms QT Int : 336 ms P-R-T Axes : 000 069 -29 degrees QTc Int : 512 ms Atrial flutter Right bundle branch block T wave abnormality, consider inferior ischemia Abnormal ECG When compared with ECG of 16-FEB-2023 14:34, Atrial flutter present Vent. rate has increased BY 84 BPM Right bundle branch block is now Present Referred By: Kamla Barillas Electronically Signed By:Jerry Daugherty
[2023-03-06 00:06] VITALS: BP 115/80; PULSE 131; RESP 16; O2SAT 95
--- NOTE | 2023-03-06 00:45 | PC.NURSE ---
pt continues to rest comfortably, denies pain, denies SOB. Continues to be a-flutter on the monitor, dilt drip at 15mls/hr max dose with no improvement of HR, MD aware at this time
[2023-03-06 01:13] VITALS: BP 106/66; PULSE 65; RESP 15; O2SAT 95
--- NOTE | 2023-03-06 01:14 | PC.NURSE ---
pt maintaining controlled HR at 60-70bmp in a-flutter. diltiazem drip decreased to 10mls/hr
--- NOTE | 2023-03-06 01:20 | P.HPHOSP_ITS ---
History of Present Illness Date of Service: 03/06/23 Chief Complaint: palpitations 77-year-old male with past medical history of paroxysmal AFib, hypertension, who presents to the hospital with complaints of chest tightness, and palpitations. 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 Patient reports that they did not resolve at rest. Reports similar episode several views ago. he states that his Apple watch indicated he is tachycardic with heart rates in the 140s, patient felt slight dizziness, no shortness of breath, no abdominal pain nausea or vomiting, no diarrhea constipation, no urinary symptoms and no lower extremity edema. he called his doctor, was told to take an extra dose of metoprolol, which he did with no resolution of his symptoms therefore decided to come to the hospital Of note patient underwent watchman's procedure in January about 5 weeks ago for history of AFib and reports compliance with his medications On arrival to the ED patient found to have a heart rate in the 120s to 140s, blood pressure stable, Labs are significant for negative troponin x1, otherwise unremarkable Patient placed on Cardizem drip after failing IV pushes of metoprolol and diltiazem x2 with heart rate now better controlled patient will be admitted for further management Review of Systems Review of Systems: Yes all other systems are reviewed and are negative [facility] Medical History (Updated 03/06/23 @ 06:29 by Hannah Vinson MD) Afib CAD (coronary artery disease) HTN (hypertension) Pancreatic abnormality Surgical History Hx of heart artery stent Social History Alcohol intake: current Alcohol intake frequency: 0-2 drinks per day Alcohol type: beer, wine and hard liquor Patient Tobacco Use Status: Former Tobacco user Smoked in Last 30 Days: No Use of substances other than those prescribed or required for medical reasons: No Advance Directives: Yes Advance Directives Information Provided: No Advance Directives on File: No Nutrition Risks: No Nutritional Risk Meds Allergies Allergy/AdvReac Type Severity Reaction Status Date / Time meperidine [From Demerol] Allergy Unknown RASH Verified 03/05/23 20:40 metformin Allergy Muscle Pain Verified 03/05/23 20:40 Active Medications: Current Medications Acetaminophen (Acetaminophen 325 Mg Tablet) 650 mg PO Q6H PRN PRN Reason: Pain, Mild (Pain Scale 1-3) Apixaban (Apixaban 5 Mg Tablet) 5 mg PO BID [facility] Docusate Sodium (Docusate Sodium 100 Mg Capsule) 100 mg PO DAILY PRN PRN Reason: Constipation Gabapentin (Gabapentin 300 Mg Capsule) 300 mg PO BEDTIME PRN PRN Reason: insomnia Diltiazem HCl 125 mg/ Sodium (Chloride) 125 mls @ 0 mls/hr IVCONT .Q0M [facility]; Protocol Last Titration: 03/06/23 01:14 Dose: 10 mg/hr, 10 mls/hr Metoprolol Tartrate (Metoprolol Tartrate 25 Mg Tablet) 75 mg PO BID [facility]; Protocol Non-Formulary Medication (Rosuvastatin) 10 mg PO DAILY [facility] Ondansetron HCl (Ondansetron Hcl 4 Mg/2 Ml Vial) 4 mg IVPUSH Q8H PRN PRN Reason: Nausea and Vomiting Sodium Chloride (0.9 % Sodium Chloride Flush 3 Ml Syringe) 3 ml IVFLUSH QSHIFT [facility] Home Medications Medication Instructions Recorded Confirmed Last Taken Type amlodipine 5 mg tablet 5 mg PO DAILY 03/06/23 03/06/23 03/05/23 History apixaban 5 mg tablet (Eliquis) 5 mg PO BID 03/06/23 03/06/23 03/05/23 History gabapentin 300 mg capsule 300 mg PO BEDTIME PRN insomnia 03/06/23 03/06/23 03/05/23 History losartan 100 mg tablet 100 mg PO DAILY 03/06/23 03/06/23 03/05/23 History metoprolol tartrate 50 mg tablet 75 mg PO BID 03/06/23 03/06/23 03/05/23 History rosuvastatin 10 mg tablet 10 mg PO DAILY 03/06/23 03/06/23 03/05/23 History Physical Exam Vital Signs and Narrative: Vital Signs: Last Vital Signs Temp 98.0 F 03/05/23 22:12 Pulse 65 03/06/23 01:13 Resp 15 03/06/23 01:13 BP 106/66 03/06/23 01:13 Pulse Ox 95 03/06/23 01:13 O2 Del Method Room Air 03/06/23 01:13 BMI result Body Mass Index 28.0 Const: General: cooperative and no acute distress Orientation/consciousness: patient oriented x3 Eyes: General: appearance normal, both eyes and all related structures Resp: Effort & Inspection: normal respiratory effort Auscultation: clear to auscultation bilaterally Cardio: Other: irregular rhythm, tachycardic GI: Palpation (GI): Soft to palpation Auscultation: normal bowel sounds Skin: General skin exam: no rashes or lesions noted Neuro: General: patient oriented x3 Cognition (Neuro): normal cognition Extrem: General: Yes normal to inspection and Yes no pedal edema Results Labs 03/05/23 21:10 03/05/23 20:55 Labs: Laboratory Results - last 24 hr 03/05/23 03/05/23 03/05/23 20:55 20:55 21:10 MCV 88.2 MCH 30.0 MCHC 34.0 RDW 14.4 Plt Count 209 D MPV 9.5 Immature Gran % (Auto) 0.2 Neut % (Auto) 68.9 Lymph % (Auto) 17.4 L [place] % (Auto) 6.6 Eos % (Auto) 6.1 H Baso % (Auto) 0.8 Lymph # (Auto) 1.5 [place] # (Auto) 0.6 Eos # (Auto) 0.5 H Baso # (Auto) 0.1 Abs Immat Gran (auto) 0.02 Absolute Neuts (auto) 6.0 Absolute Nucleated RBC 0.000 Nucleated RBC % (auto) 0.0 Anion Gap 15 Estim Creat Clear Calc 51.2 Estimated GFR 53 Random Glucose 249 H Calcium 9.5 Total Bilirubin 0.8 Direct Bilirubin 0.2 AST 18 ALT 14 Alkaline Phosphatase 83 Troponin I High Sens 4.3 D Total Protein 6.7 Albumin 4.1 Imaging Radiologist's Impressions: Impressions Chest X-Ray 03/05/23 21:05 IMPRESSION: Unremarkable chest examination Assessment and Plan (1) Atrial fibrillation with RVR: Status: Acute Plan 77-year-old male with past medical history of AFib status post Watchman procedure 5 weeks ago presents to the hospital in AFib with RVR # AFib with RVR - baseline on metoprolol 75 mg b.i.d. - came with heart rate in the 140s, in AFib RVR - on diltiazem drip, will resume home metal - cardiology consulted - no apparent exacerbating factors at this time - continue Eliquis # hypertension - stable - on diltiazem drip, - once able to titrate diltiazem drip of, can resume losartan and amlodipine DVT prophylaxis: Eliquis given patient's need for IV drip for controlling heart rate patient required minimum 2 nights inpatient hospital stay for treatment and management Time Spent With Patient Time: Total time managing care of this patient today ____ minutes. Quality Stroke Does the patient have a stroke diagnosis?: No VTE Prior VTE?: No VTE Risk Level:: Medical - moderate - high VTE Device Contraindication: Treatment Not Indicated VTE Drug Contraindication: N/A - Med Ordered
--- NOTE | 2023-03-06 01:27 | PC.NURSE ---
patient states he took his home dose of eliquis at 8pm last night and would like to hold off on nighttime dose at this time, feels more comfortable taking it later in the morning
--- NOTE | 2023-03-06 01:28 | PC.NURSE ---
pt is now resting comfortably, offers no complaints to this RN, denies pain/discomfort, denies SOB, denies fluttering in chest. Equal chest rise noted, pt is a-flutter on the monitor at a more controlled rate of 60-70s on the diltiazem drip. Pt used urinal for BR. Continue plan of care for admission, awaiting admission orders at this time
[2023-03-06] MEDS: Acetaminophen 325 MG TABLET 650 MG PO (01:52)
--- NOTE | 2023-03-06 02:02 | PC.NURSE ---
this RN observed patient HR drop to 38-48, stopped diltiazem drip and tiger texted MD Vinson to make her aware, MD agrees with plan to hold diltiazem drip until further notice. Pt is asymptomatic and denies any dizziness, chest pain, sob
--- NOTE | 2023-03-06 02:40 | PC.NURSE ---
pt now sleeping at this time, respirations equal and non-labored, skin pwd. HR 63 A-fib on the monitor. no apparent distress at this time. Continue plan of care for admission
--- NOTE | 2023-03-06 02:53 | PC.NURSE ---
per MD Vinson, If HR sustains above 110 for 30 minutes or more, restart the diltiazem drip at 5ml/hr and go up by 2.5 ml every 15 minutes for a desired HR below 90 Report given to LAYLA Mckeon at this time
[2023-03-06 05:51] VITALS: BP 122/74; PULSE 66; RESP 19; TEMP 36.6; O2SAT 98
[2023-03-06 06:52] LABS: Alanine Aminotransferase 10 U/L (0-40); Albumin Level 3.3 g/dL (3.5-5.0); Alkaline Phosphatase 65 U/L (39-117); Anion Gap 12 (12-20); Aspartate Amino Transferase 14 U/L (5-37); Bilirubin Total 0.6 mg/dL (0.0-1.0); Blood Urea Nitrogen 24 mg/dL (9-16); Calcium 8.4 mg/dL (8.4-10.2); Carbon Dioxide 25 mmol/L (22-29); Chloride 109 mmol/L (96-108); Creatinine Clr Calc Pharmacy 61.5; Estimated Glomerular Filt Rate > 60; Glucose Random 145 mg/dL (60-115); Potassium 4.4 mmol/L (3.3-5.1); Sodium 142 mmol/L (135-145); Total Protein 5.3 g/dL (6.5-8.0)
[2023-03-06 07:01] LABS: Glucose, Whole Blood 152 mg/dL (60-115)
--- NOTE | 2023-03-06 07:03 | PHA.MEDREC ---
Pharmacy Consult ? Medication Reconciliation Pharmacy has completed the medication reconciliation. Completed by RN and renewed by pharmacy Brian
[2023-03-06] MEDS: Metoprolol Tartrate 25 MG TABLET 75 MG PO (07:06)
[2023-03-06] MEDS: Apixaban 5 MG TABLET PO (07:06)
[2023-03-06 07:47] LABS: Troponin-I High Sensitivity 5.5 ng/L (<3.5-35.0)
[2023-03-06 07:48] LABS: B Type Natriuretic Peptide 426 pg/mL (<100)
--- NOTE | 2023-03-06 07:54 | PC.NURSE ---
report taken from previous shift rn pt here for s/s tachycardia, found to be in atrial flutter on arrival with bpm >120. hx of afib and anticoagulated on eliquis, had recent watchman procedure approx 5 weeks ago, per pt. on first contact, pt is sitting up in bed, rr even/unlabored on room air, appears comfortable. hr variant on monitor anywhere from 60-90bpm appears to be in afib. denies cp sob or dizziness at this time. diltiazem infusion paused for hr<90. pt able to sit up at bedside on own strength, ate breakfast and took hs po medications without issue. back to bed resting comfortably reading a book, awaiting inpt bed assignment. no further questions about plan of care from patient, wctm.
[2023-03-06 09:27] VITALS: BP 105/63; PULSE 49; RESP 13; TEMP 36.5; O2SAT 96
--- NOTE | 2023-03-06 10:12 | MHC.CM.PN ---
Addendum entered by Monik Jenkins 03/06/23 15:24: Received telephone call from patient's PCP's office. No HCP on file with their office. Original Note: Met with patient in regards to discharge planning. Patient lives with her , ambulates independently and had no services prior to coming to the hospital No services anticipated to be needed because patient is not homebound. PCP verified. Patient states he has a HCP at his PCP's office. T/W has reached out to PCP's office to obtain a copy of HCP. Obs notice explained and signed. Patient received 4 Pfizer vaccines and 1 Moderna vacine. Patient's will transport patient when medically stable. Continue to monitor for d/c needs.
--- NOTE | 2023-03-06 10:26 | PC.NURSE ---
dr soria at bedside for rounds with pt.
--- NOTE | 2023-03-06 11:50 | P.DS_ITS ---
DS: Providers Provider Date of Service: 03/06/23 Date of admission: 03/06/23 01:15 Primary care physician: Farhan Salcido MD Consults: 03/06/23 01:17 Consult to Cardiology Routine Consulting Provider: [facility] Reason for consultation: A fib w RVR Has provider been notified: No DS: Diagnosis Discharge Diagnosis (1) Atrial fibrillation with RVR: Status: Acute DS: Summary Hospital Course Hospital Course: 77-year-old male with past medical history of paroxysmal AFib, hypertension, who presents to the hospital with complaints of chest tightness, and palpitations.? Patient reports that he was doing some yd work when he started developing midsternal nonradiating intermittent moderate chest pain lasting 10-15 minutes and recurrent.? Patient reports that they did not resolve at rest.? Reports similar episode several views ago. ? he states that his Apple watch indicated he is tachycardic with heart rates in the 140s, patient felt slight dizziness, no shortness of breath, no abdominal pain nausea or vomiting, no diarrhea constipation, no urinary symptoms and no lower extremity edema. ? he called his doctor, was told to take an extra dose of metoprolol, which he did with no resolution of his symptoms therefore decided to come to the hospital Of note patient underwent watchman's procedure in January about 5 weeks ago for history of AFib and reports compliance with his medications On arrival to the ED patient found to have a heart rate in the 120s to 140s, blood pressure stable, Labs are significant for negative troponin x1,? otherwise unremarkable Patient placed on Cardizem drip after failing IV pushes of metoprolol and diltiazem x2 with heart rate now better controlled ?patient will be admitted for further management. hospital course: Patient admitted to the hospital because of palpitation and a found to have AFib with RVR: Started on IV Cardizem drip overnight now improved to sinus rhythm. Seen by Cardiology patient seems to improved and recommended to go home with home medications metoprolol and Eliquis as currently taking. Above management discussed the patient detail and he understand and in agreement the above plan, time spent 50 minute. Time Spent with Patient Time attestation: Total time managing care of this patient today ____ minutes. Discharge coordination time: Greater than 30 minutes Quality: Safe Use of Opioids Does Pt have an Active Cancer Diagnosis on the Problem List?: No Quality: Stroke Does the patient have a stroke diagnosis?: No Physical Exam Vital Signs: Vital Signs: Last Vital Signs Temp 97.7 F 03/06/23 09:27 Pulse 49 L 03/06/23 09:27 Resp 13 03/06/23 09:27 BP 105/63 03/06/23 09:27 Pulse Ox 96 03/06/23 09:27 O2 Del Method Room Air 03/06/23 09:27 BMI result Body Mass Index 28.0 Appearance: Alert.? Oriented X3.? not in distress.? cvs: rrr, [id number] . res: clear to auscultation ,no rhonchii or wheezing abd: no rebound or guarding ,nt, bs present. ext pulses present , no cyanosis . neuro: axo3 , nonfocal. DS: Data Data Completed and Pending Labs on day of discharge: Laboratory Results - last 24 hr 03/05/23 03/05/23 03/05/23 20:55 20:55 21:10 WBC 8.7 RBC 4.90 Hgb 14.7 Hct 43.2 MCV 88.2 MCH 30.0 MCHC 34.0 RDW 14.4 Plt Count 209 D MPV 9.5 Immature Gran % (Auto) 0.2 Neut % (Auto) 68.9 Lymph % (Auto) 17.4 L [place] % (Auto) 6.6 Eos % (Auto) 6.1 H Baso % (Auto) 0.8 Lymph # (Auto) 1.5 [place] # (Auto) 0.6 Eos # (Auto) 0.5 H Baso # (Auto) 0.1 Abs Immat Gran (auto) 0.02 Absolute Neuts (auto) 6.0 Absolute Nucleated RBC 0.000 Nucleated RBC % (auto) 0.0 Sodium 141 Potassium 4.6 Chloride 103 Carbon Dioxide 28 Anion Gap 15 BUN 24 H Creatinine 1.31 Estim Creat Clear Calc 51.2 Estimated GFR 53 POC Glucose Random Glucose 249 H Calcium 9.5 Total Bilirubin 0.8 Direct Bilirubin 0.2 AST 18 ALT 14 Alkaline Phosphatase 83 Troponin I High Sens 4.3 D B-Natriuretic Peptide Total Protein 6.7 Albumin 4.1 03/06/23 03/06/23 03/06/23 06:05 06:56 07:22 WBC RBC Hgb Hct MCV MCH MCHC RDW Plt Count MPV Immature Gran % (Auto) Neut % (Auto) Lymph % (Auto) [place] % (Auto) Eos % (Auto) Baso % (Auto) Lymph # (Auto) [place] # (Auto) Eos # (Auto) Baso # (Auto) Abs Immat Gran (auto) Absolute Neuts (auto) Absolute Nucleated RBC Nucleated RBC % (auto) Sodium 142 Potassium 4.4 Chloride 109 H Carbon Dioxide 25 Anion Gap 12 BUN 24 H Creatinine 1.09 Estim Creat Clear Calc 61.5 Estimated GFR > 60 POC Glucose 152 H Random Glucose 145 H Calcium 8.4 D Total Bilirubin 0.6 Direct Bilirubin AST 14 ALT 10 Alkaline Phosphatase 65 Troponin I High Sens 5.5 B-Natriuretic Peptide Total Protein 5.3 L Albumin 3.3 L 03/06/23 07:22 WBC RBC Hgb Hct MCV MCH MCHC RDW Plt Count MPV Immature Gran % (Auto) Neut % (Auto) Lymph % (Auto) [place] % (Auto) Eos % (Auto) Baso % (Auto) Lymph # (Auto) [place] # (Auto) Eos # (Auto) Baso # (Auto) Abs Immat Gran (auto) Absolute Neuts (auto) Absolute Nucleated RBC Nucleated RBC % (auto) Sodium Potassium Chloride Carbon Dioxide Anion Gap BUN Creatinine Estim Creat Clear Calc Estimated GFR POC Glucose Random Glucose Calcium Total Bilirubin Direct Bilirubin AST ALT Alkaline Phosphatase Troponin I High Sens B-Natriuretic Peptide 426 H Total Protein Albumin Imaging Chest x-ray: Radiologist's impression: ITS Impressions Chest X-Ray 03/05/23 21:05 IMPRESSION: Unremarkable chest examination Discharge Plan Discharge Patient Disposition: Home, Self-Care Discharge Diagnosis: afib Referrals: Farhan Salcido MD [Primary Care Provider] - 1 Week Discharge Medications: Continued amlodipine 5 mg tablet 5 mg PO DAILY metoprolol tartrate 50 mg tablet 75 mg PO BID gabapentin 300 mg capsule 300 mg PO BEDTIME PRN (Reason: insomnia) losartan 100 mg tablet 100 mg PO DAILY rosuvastatin 10 mg tablet 10 mg PO DAILY Eliquis 5 mg tablet 5 mg PO BID Discharge Orders: Discharge Order (Routine); Ordered 03/06/23 Ordered By: Chaim Ayala Diet: Advance to usual diet Activity on Discharge: As tolerated Stand Alone Forms: Patient Portal Discharge page Care Plan Goals: Patient admitted to the hospital because of palpitation and a found to have AFib with RVR: Started on IV Cardizem drip overnight now improved to sinus rhythm. Seen by Cardiology patient seems to improved and recommended to go home with home medications metoprolol and Eliquis as currently taking. Health Concerns: As above. Plan of Treatment: As above. Assessment: As above.
[2023-03-06 12:22] VITALS: BP 137/45; PULSE 52; RESP 16; TEMP 36.6; O2SAT 97
--- NOTE | 2023-03-06 12:43 | PM.CNCAR ---
History of Present Illness History of Present Illness Date of Service: 03/06/23 Requesting physician: Chaim Ayala Chief complaint: chest pain, tachycardia. Narrative: Pleasant 77 gentleman follows up with [facility] who is here for chest discomfort and tachycardia. He has known history of atrial fibrillation. Previously had rectal bleeding as well as hematuria and underwent Watchman device in January 2023. He is still is on apixaban and will be undergoing transesophageal echocardiogram to assess the Watchman device for any leak and will eventually get off the Eliquis. He said he was in his usual state of health when he has started feeling chest discomfort. This was a pressure-like feeling on the left side of chest. He previously has coronary disease and his anginal symptoms are mostly indigestion like feeling. He said that his symptoms were somewhat mixed but given the fact that he had chest discomfort he came to the emergency department. In the ER he was noticed to be tachycardic and EKGs to me appeared more like that he was in atrial flutter. He was started on Cardizem for rate control and he appeared to be in AFib afterwards and then converted to sinus rhythm. He is back to his baseline at this point and has no symptoms. He has an appointment with Dr. Martino on Thursday. [facility], [facility] Past Medical History Medical History (Updated 03/06/23 @ 12:23 by Payam Orr) Afib CAD (coronary artery disease) HTN (hypertension) Pancreatic abnormality Surgical History Surgical History Hx of heart artery stent Social History Social History Alcohol intake: current Alcohol intake frequency: 0-2 drinks per day Alcohol type: beer, wine and hard liquor Patient Tobacco Use Status: Former Tobacco user service: No Current occupational status: employed Meds Allergies Allergy/AdvReac Type Severity Reaction Status Date / Time meperidine [From Demerol] Allergy Unknown RASH Verified 03/05/23 20:40 metformin Allergy Muscle Pain Verified 03/05/23 20:40 Home Medications Medication Instructions Recorded Confirmed Last Taken Type amlodipine 5 mg tablet 5 mg PO DAILY 03/06/23 03/06/23 03/05/23 History apixaban 5 mg tablet (Eliquis) 5 mg PO BID 03/06/23 03/06/23 03/05/23 History gabapentin 300 mg capsule 300 mg PO BEDTIME PRN insomnia 03/06/23 03/06/23 03/05/23 History losartan 100 mg tablet 100 mg PO DAILY 03/06/23 03/06/23 03/05/23 History metoprolol tartrate 50 mg tablet 75 mg PO BID 03/06/23 03/06/23 03/05/23 History rosuvastatin 10 mg tablet 10 mg PO DAILY 03/06/23 03/06/23 03/05/23 History Physical Exam Vital Signs: Vital Signs: Last Vital Signs Temp 98 F 03/06/23 12:22 Pulse 52 03/06/23 12:22 Resp 16 03/06/23 12:22 BP 137/45 L 03/06/23 12:22 Pulse Ox 97 03/06/23 12:22 O2 Del Method Room Air 03/06/23 12:22 BMI result Body Mass Index 28.0 GENERAL APPEARANCE: in no acute distress, pleasant. NECK: no carotid bruit, no jugular venous distention. SKIN: no suspicious lesions, warm and dry. HEART: no murmurs, regular rate and rhythm. LUNGS: clear to auscultation bilaterally. ABDOMEN: soft, nontender. EXTREMITIES: no edema. PERIPHERAL PULSES: equal. NEUROLOGIC: No gross deficits, AAO X 3 Objective Labs and Meds 03/05/23 21:10 03/06/23 06:05 Lab results: Laboratory Results - last 24 hr 03/05/23 03/05/23 03/05/23 20:55 20:55 21:10 WBC 8.7 RBC 4.90 Hgb 14.7 Hct 43.2 MCV 88.2 MCH 30.0 MCHC 34.0 RDW 14.4 Plt Count 209 D MPV 9.5 Immature Gran % (Auto) 0.2 Neut % (Auto) 68.9 Lymph % (Auto) 17.4 L [place] % (Auto) 6.6 Eos % (Auto) 6.1 H Baso % (Auto) 0.8 Lymph # (Auto) 1.5 [place] # (Auto) 0.6 Eos # (Auto) 0.5 H Baso # (Auto) 0.1 Abs Immat Gran (auto) 0.02 Absolute Neuts (auto) 6.0 Absolute Nucleated RBC 0.000 Nucleated RBC % (auto) 0.0 Sodium 141 Potassium 4.6 Chloride 103 Carbon Dioxide 28 Anion Gap 15 BUN 24 H Creatinine 1.31 Estim Creat Clear Calc 51.2 Estimated GFR 53 POC Glucose Random Glucose 249 H Calcium 9.5 Total Bilirubin 0.8 Direct Bilirubin 0.2 AST 18 ALT 14 Alkaline Phosphatase 83 Troponin I High Sens 4.3 D B-Natriuretic Peptide Total Protein 6.7 Albumin 4.1 03/06/23 03/06/23 03/06/23 06:05 06:56 07:22 WBC RBC Hgb Hct MCV MCH MCHC RDW Plt Count MPV Immature Gran % (Auto) Neut % (Auto) Lymph % (Auto) [place] % (Auto) Eos % (Auto) Baso % (Auto) Lymph # (Auto) [place] # (Auto) Eos # (Auto) Baso # (Auto) Abs Immat Gran (auto) Absolute Neuts (auto) Absolute Nucleated RBC Nucleated RBC % (auto) Sodium 142 Potassium 4.4 Chloride 109 H Carbon Dioxide 25 Anion Gap 12 BUN 24 H Creatinine 1.09 Estim Creat Clear Calc 61.5 Estimated GFR > 60 POC Glucose 152 H Random Glucose 145 H Calcium 8.4 D Total Bilirubin 0.6 Direct Bilirubin AST 14 ALT 10 Alkaline Phosphatase 65 Troponin I High Sens 5.5 B-Natriuretic Peptide Total Protein 5.3 L Albumin 3.3 L 03/06/23 07:22 WBC RBC Hgb Hct MCV MCH MCHC RDW Plt Count MPV Immature Gran % (Auto) Neut % (Auto) Lymph % (Auto) [place] % (Auto) Eos % (Auto) Baso % (Auto) Lymph # (Auto) [place] # (Auto) Eos # (Auto) Baso # (Auto) Abs Immat Gran (auto) Absolute Neuts (auto) Absolute Nucleated RBC Nucleated RBC % (auto) Sodium Potassium Chloride Carbon Dioxide Anion Gap BUN Creatinine Estim Creat Clear Calc Estimated GFR POC Glucose Random Glucose Calcium Total Bilirubin Direct Bilirubin AST ALT Alkaline Phosphatase Troponin I High Sens B-Natriuretic Peptide 426 H Total Protein Albumin Imaging Radiologist's impression: Impressions Chest X-Ray 03/05/23 21:05 IMPRESSION: Unremarkable chest examination Assessment and Plan (1) Chest pressure: Status: Acute (2) Atrial fibrillation with RVR: Status: Acute Plan [age] gentleman with background of coronary disease, atrial fibrillation and GI bleed for which she underwent Watchman device in January 2023. He is still on apixaban and will probably under good JAMES and get off the apixaban in the next month or so. He is presenting with chest discomfort and tachycardia. During tachycardia he had right bundle-branch block and it appears that he was in atrial flutter at that time. Once his rhythm slowed down he appeared to be in AFib which he has converted out of to sinus rhythm at this point spontaneously. He is asymptomatic. I think his presentation is due to tachycardia and not due to ACS. 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 I think he is stable to go home. Continue same medications for now. Thank you for allowing me to participate in the care of your patient. Please feel free to contact me if you have any questions. Time Spent With Patient Time: Total time managing care of this patient today ____ minutes. Procedures Date of Service Date of Service: 03/06/23
== END 2023-03-06 12:19 | disposition home or self-care (01) ==
LOC: HO.ED 03-06 01:26 → HO.EDOVER 03-06 01:30
PROVIDERS: Admitting Provider Internal Medicine; Emergency Provider Emergency Medicine Emergency Medical Services; PCP Internal Medicine; Visit Provider Internal Medicine
DX: I48.91 Unspecified atrial fibrillation (principal); R07.9 Chest pain, unspecified; I10 Essential (primary) hypertension; Z79.01 Long term (current) use of anticoagulants; Z79.899 Other long term (current) drug therapy; Z79.02 Long term (current) use of antithrombotics/antiplatelets; Z87.891 Personal history of nicotine dependence
CPT/HCPCS: 36415; 71045; 80048; 80053; 80076; 82947; 83880; 84484; 85025; 93005; 96361; 96374; 96376; 99222; 99285